=== PATIENT | male | born 1970 | race Caucasian/White ===

== ENCOUNTER → 2019-03-04 09:08 | Outpatient (CLI) | payer OTHER, MEDICAID, SELFPAY ==
[2019-03-04 10:34] LABS: Alanine Aminotransferase 41 IU/L (21-72); Albumin 4.4 g/dL (3.5-5.0); Albumin Globulin Ratio 1.4 (1.0-2.8); Alkaline Phosphatase 60 U/L (38-126); Aspartate Aminotransferase 32 IU/L (17-59); Bilirubin Total 0.8 mg/dL (0.2-1.3); Blood Urea Nitrogen 14 mg/dL (9-20); Calcium 9.5 mg/dL (8.4-10.2); Carbon Dioxide 31 mmol/L (22-32); Chloride 102 mmol/L (98-107); Cholesterol 235 mg/dL (140-199); Estimated Glomerular Filt Rate > 60.0 mL/min (>60); Globulin 3.1 g/dL (1.7-4.1); Glucose 92 mg/dL (70-100); HDL Cholesterol 32 mg/dL (40-60); HEMOLYSIS < 15 (0-50); LDL Cholesterol Calculated 164 mg/dL (<100); Potassium 4.9 mmol/L (3.4-5.1); Sodium 139 mmol/L (137-145); Total Protein 7.5 g/dL (6.3-8.2); Triglycerides 193 mg/dL (35-150)
[2019-03-04 10:36] LABS: Add Manual Diff / Slide Review NO; Basophils Absolute Auto 0 /uL (0-100); Basophils Percent Auto 0.6 % (0-2); Eosinophils Absolute Auto 100 /uL (0-450); Eosinophils Percent Auto 1.8 % (2-4); Hematocrit 45.5 % (41-53); Hemoglobin 15.8 g/dL (13.5-17.5); Lymphocytes Absolute Auto 2100 /uL (1100-4500); Lymphocytes Percent Auto 27.2 % (25-40); Mean Corpuscular HGB Conc 34.6 % (30-36); Mean Corpuscular Hemoglobin 31.3 PG (26-34); Mean Corpuscular Volume 90.3 fL (80-100); Monocytes Absolute Auto 600 /uL (0-900); Monocytes Percent Auto 8.1 % (3-14); Neutrophils Absolute Auto 4800 /uL (1500-7000); Neutrophils Percent Auto 62.3 % (50-75); Platelet Count 170 X10^3/uL (150-400); Red Blood Cell Count 5.04 X10^6/uL (4.5-5.9); Red Cell Distribution Width 14.2 % (11.6-14.8); White Blood Cell Count 7.8 X10^3/uL (4.5-11.0)
[2019-03-04 11:02] LABS: Prostate Specific Antigen Scrn 1.11 ng/mL (0.1-4.0)
[2019-03-04 11:28] LABS: Appearance Urine UA CLEAR; Bilirubin Urine UA NEGATIVE (NEGATIVE); Color Urine UA YELLOW; Glucose Urine UA NEGATIVE (Negative); Ketones Urine UA NEGATIVE (NEGATIVE); Leukocyte Esterase Urine UA NEGATIVE (NEGATIVE); Nitrite Urine UA NEGATIVE (Negative); Occult Blood Urine UA NEGATIVE (Negative); Protein Urine UA NEGATIVE (Negative); Urobilinogen Urine UA 0.2 E.U./dL (0.2); pH Urine UA 6.5 (4.5-8.0)
== END ==
PROVIDERS: PCP Family Medicine; Visit Provider Family Medicine
DX: J45.909 Unspecified asthma, uncomplicated (principal); R59.9 Enlarged lymph nodes, unspecified; F17.200 Nicotine dependence, unspecified, uncomplicated; Z13.220 Encounter for screening for lipoid disorders; Z13.29 Encounter for screening for other suspected endocrine disorder; Z12.5 Encounter for screening for malignant neoplasm of prostate
CPT/HCPCS: 36415; 80053; 80061; 81003; 84443; 85025; G0103

== ENCOUNTER → 2019-03-15 09:50 | Outpatient (CLI) | payer OTHER, MEDICAID, SELFPAY ==
--- NOTE | 2019-03-15 09:53 | DI.MRI.S_ITS ---
PROCEDURE: MR HIP LT WO/W CON INDICATIONS: Left hip dysplasia TECHNIQUE: Noncontrast coronal T1 spin echo and STIR through the bony pelvis. Coronal and axial T2 fast spin echo with fat saturation, axial T1 spin echo with fat saturation, sagittal T1 spin echo, and oblique axial T2 fast spin echo with fat saturation through the hip. Post-contrast axial, coronal, and sagittal spin echo with fat saturation through the hip. COMPARISON: None. FINDINGS: Image quality: Excellent. Bones and joints: No suspicious osseous enhancement. Osteoarthritic changes are noted in bilateral hip joints with joint space narrowing and subchondral sclerosis, slightly worse on the left side. No intraosseous lesions or fractures. No avascular necrosis of the femoral heads. The visualized lower lumbar spine appears normally aligned. Tendons and ligaments: There is distal gluteus medius and minimus tendinosis at their insertion on greater trochanter. Moderate grade intrasubstance partial-thickness tear is also likely present. No full-thickness muscle or tendon rupture. No muscle atrophy. The nearby proximal iliotibial band also appears intact. The iliopsoas tendon appears intact, without adjacent bursal fluid collections or evidence for impingement syndrome. The origin of the hamstring tendon is intact at the ischial tuberosity, as well as the associated sacrotuberous ligament. The straight and reflected heads of the rectus femoris muscle origin appear intact, as well as the conjoint tendon. The ligamentum teres appears intact where visualized. Labrum and cartilage: The absence of intra-articular contrast, there is suggestion of superior anterior left hip labral tear. The alpha angle of the femur is within normal limits at less than 55 degrees. Soft tissues: No suspicious soft tissue enhancement. Visualized muscles demonstrate normal bulk and internal signal. Quadratus femoris muscle demonstrates no internal edema to suggest ischiofemoral impingement. The proximal sciatic neurovascular bundle appears normal adjacent to the hamstring tendons. No free pelvic fluid. Bladder wall thickness is normal. Genitourinary structures and bowel loops appear normal where visualized. IMPRESSION: 1. Left worse than right bilateral hip joint osteoarthritis. No fracture or dislocation. No marrow edema. No evidence of avascular necrosis. 2. Tendinosis and low-grade partial-thickness tear involving distal left gluteal medius and minimus at their insertion on greater trochanter. 3. Finding is concerning for a focal left superior anterior hip labral tear. 4. No area of abnormal contrast enhancement. Dictated by: Hunter Cortez M.D. on 03/15/2019 at 13:50 Approved by: Hunter Cortez M.D. on 03/15/2019 at 14:02
== END ==
PROVIDERS: PCP Family Medicine; Visit Provider Family Medicine
DX: Q65.89 Other specified congenital deformities of hip (principal); M16.0 Bilateral primary osteoarthritis of hip
CPT/HCPCS: 73723

== ENCOUNTER → 2019-10-21 07:44 | Outpatient (CLI) | payer OTHER, MEDICAID, SELFPAY ==
[2019-10-21 08:55] LABS: Alanine Aminotransferase 30 IU/L (<50); Albumin 4.4 g/dL (3.5-5.0); Albumin Globulin Ratio 1.4 (1.0-2.8); Alkaline Phosphatase 52 U/L (38-126); Aspartate Aminotransferase 29 IU/L (17-59); Bilirubin Total 0.6 mg/dL (0.2-1.3); Blood Urea Nitrogen 18 mg/dL (9-20); Calcium 9.7 mg/dL (8.4-10.2); Carbon Dioxide 33 mmol/L (22-32); Chloride 102 mmol/L (98-107); Cholesterol 291 mg/dL (140-199); Estimated Glomerular Filt Rate > 60.0 mL/min (>60); Globulin 3.2 g/dL (1.7-4.1); Glucose 101 mg/dL (70-100); HDL Cholesterol 38 mg/dL (40-60); HEMOLYSIS < 15 (0-50); LDL Cholesterol Calculated 209 mg/dL (<100); Sodium 140 mmol/L (137-145); Total Protein 7.6 g/dL (6.3-8.2); Triglycerides 220 mg/dL (35-150)
== END ==
PROVIDERS: PCP Family Medicine; Visit Provider Family Medicine
DX: Z13.29 Encounter for screening for other suspected endocrine disorder (principal); Z51.81 Encounter for therapeutic drug level monitoring; E78.5 Hyperlipidemia, unspecified
CPT/HCPCS: 36415; 80053; 80061

== ENCOUNTER → 2019-11-22 17:59 | Outpatient (CLI) | payer OTHER, MEDICAID, SELFPAY | PROVIDERS: PCP Family Medicine; Visit Provider Nurse Practitioner | DX: L72.9 Follicular cyst of the skin and subcutaneous tissue, unspecified (principal) | CPT/HCPCS: 87070; 87075; 87077; 87147; 87185; 87186; 87205 ==

== ENCOUNTER → 2020-08-17 12:51 | Outpatient (CLI) | payer BC, SELFPAY ==
--- NOTE | 2020-08-17 | DI.MRI.S_ITS ---
PROCEDURE: MR LUMBAR SPINE WO CON INDICATIONS: Low back pain TECHNIQUE: Noncontrast sagittal T1 spin echo and T2 fast echo, sagittal STIR, axial T1 and T2 fast spin echo through the lumbar spine. In cases with scoliosis, additional coronal T2 fast spin echo may be performed. COMPARISON: [facility], CR, XR LUMBAR SPINE 2 OR 3 VIEWS, 08/04/2020, 16:27. FINDINGS: Image quality: Excellent. Alignment and Curvature: 5 lumbar type vertebral bodies are present by plain film. There is mild, grade 1 retrolisthesis of L2 on L3. There is mild grade 1 anterolisthesis of L3 on L4. Bone Marrow: Marrow is of normal overall signal. No acute vertebral body compression fractures. There is moderate reactive signal within the endplates adjacent to the L4-L5 intervertebral disc. Mild reactive signal within the endplates adjacent to the L2-L3, L3-L4, and L5-S1 intervertebral discs. Spinal Cord: Conus medullaris terminates at the L1-L2 disc space level. Visualized cord demonstrates normal signal and size. Paraspinous Soft Tissues: No paravertebral masses. L1-L2: Mild disc desiccation and diffuse disc bulge. Mild facet and ligamentum flavum hypertrophy. Mild epidural lipomatosis. Mild canal stenosis. Mild bilateral foraminal stenosis. L2-L3: Moderate disc height loss and desiccation. Mild diffuse disc bulge. Mild facet and ligamentum flavum hypertrophy. Mild epidural lipomatosis. Mild canal stenosis. Mild bilateral foraminal stenosis. L3-L4: Moderate disc height loss and desiccation. Mild diffuse disc bulge. Moderate facet hypertrophy. Mild ligamentum flavum hypertrophy. Mild epidural lipomatosis. Mild canal stenosis. Moderate left foraminal stenosis. Mild right foraminal stenosis. L4-L5: Moderate disc height loss and desiccation. Mild diffuse disc bulge. Mild bilateral facet hypertrophy. Mild canal stenosis. Moderate left and mild right foraminal stenosis. L5-S1: Mild disc height loss and desiccation. Mild diffuse disc bulge. Mild bilateral facet hypertrophy. Mild canal stenosis. Moderate bilateral foraminal stenosis. IMPRESSION: 1. Multilevel degenerative disc and facet disease, as well as ligamentum flavum hypertrophy and epidural lipomatosis. 2. Mild multilevel canal stenosis. 3. Multilevel foraminal stenosis, worst at L3-L4, L4-L5, and L5-S1, where there are moderate foraminal stenosis as described above. Dictated by: Joni Adkins M.D. on 08/17/2020 at 13:45 Approved by: Joni Adkins M.D. on 08/17/2020 at 13:49
== END ==
PROVIDERS: PCP Family Medicine; Referring Provider Orthopaedic Surgery Orthopaedic Surgery of the Spine; Visit Provider Orthopaedic Surgery Orthopaedic Surgery of the Spine
DX: M54.5 Low back pain (principal); M51.36 Other intervertebral disc degeneration, lumbar region; M51.37 Other intervertebral disc degeneration, lumbosacral region; M48.061 Spinal stenosis, lumbar region without neurogenic claudication; M48.07 Spinal stenosis, lumbosacral region; E88.2 Lipomatosis, not elsewhere classified
CPT/HCPCS: 72148

== ENCOUNTER → 2020-09-25 08:22 | Outpatient (CLI) | payer BC, SELFPAY ==
[2020-09-26 01:37] LABS: COVID19 Sendout Not Detected (Not Detect)
== END ==
PROVIDERS: PCP Family Medicine; Visit Provider Physician Assistant
DX: Z11.59 Encounter for screening for other viral diseases (principal)
CPT/HCPCS: 87635

== ENCOUNTER 2020-09-28 05:55 | Inpatient (IN) | payer BC, SELFPAY ==
[2020-09-23 09:41] VITALS: BMI 40.7
[2020-09-28] VITALS (18 sets, daily range): BP systolic 120–170; BP diastolic 63–102; PULSE 61–91; RESP 7–19; TEMP 36.1–37.1; O2SAT 91–100; BMI 40.1
--- NOTE | 2020-09-28 | DI.RAD.S_ITS ---
PROCEDURE: XR LUMBAR SPINE 2-3V INDICATIONS: L3-4 TLIF TECHNIQUE: 2 views of the lumbar spine were acquired. COMPARISON: None. FINDINGS: Bones: 5 [id number] vertebrae are present. There is normal bony alignment. No vertebral body compression fractures. No suspicious bony lesions. Prior posterior fusion procedure has been performed with transverse pedicle screws crossing from L3 through L5, and bilateral vertical fixation rods in expected position. Interbody disc cage prosthesis devices are present at L3-4 and L4-5. Soft tissues: Overlying bowel gas pattern is normal. No suspicious soft tissue calcifications. IMPRESSION: Normal alignment established after posterior fusion and interbody cage disc prosthesis devices placement crossing from L3 through L5. Dictated by: Cirilo Elizabeth M.D. on 09/28/2020 at 12:56 Approved by: Cirilo Elizabeth M.D. on 09/28/2020 at 13:05
[2020-09-28] MEDS: LACTATED RINGERS 1,000 ML 42 ML IV ×2 (07:00→09:15)
[2020-09-28] MEDS: CLINDAMYCIN 900 MG/50 ML PIGGYBACK 50 MG IV ×3 (07:55→23:36)
--- NOTE | 2020-09-28 08:28 | SUR.OPER ---
Prone on spine table, head in foam head support, padded chest and pelvic supports, gel pad at knees, lower legs supported by pillows; nipples, genitalia and toes free of pressure, arms secured on foam padded arm boards at <90 degrees abduction. Tape over blanket at thigh secured to table.
[2020-09-28] MEDS: BUPIVACAINE 0.25% W/ EPI 30 ML VIAL INJ (08:35)
[2020-09-28] MEDS: BUPIVACAINE LIPOSOME 266 MG/20 ML VIAL INJ (08:35)
--- NOTE | 2020-09-28 11:55 | PC.NURSE ---
Day shift: Pt is not on AC unit at this time (1200).
--- NOTE | 2020-09-28 12:06 | PM.OP.1 ---
Operative Date/Time/Diagnoses Date of procedure: 09/28/20 Time of procedure: 08:06 Pre-op diagnosis: 1. L3-4 spondylolisthesis 2. L3-4, L4-5 spinal stenosis with radiculopathy 3. L3-4, L4-5 spondylosis with radiculopathy Post-op diagnosis: same Procedure & Clinicians Procedure: 1. L3-4, L4-5 Postero-lateral and posterior interbody fusion 2. L3-4, L4-5 interbody cage placement. 3. L3-4, L4-5 decompressive laminectomy with bilateral facetecomies 4. L3-4, L4-5 Posterior segmental instrumentation 5. Sherborn of bone marrow from iliac crest 6. Utilization of microsurgical technique and operating microscope Same procedure as scheduled: Yes Indications: Patient has been having chronic back pain and worsening lumbar radiculopathy. Patient failed multiple conservative management with worsening pain weakness and numbness in her lower extremity. Patient has been having difficulty performing activity of daily living. After discussing risks benefits of treatment options, patient elected proceed with surgery. Surgeon: Felisa Pérez Dispensing Operator: July Merritt Click Yes if Unassisted: No Anesthesia Type: General Operative Notes Closure Type: primary Specimen(s): none sent Prosthetic devices, grafts, tissues, transplants, or devices: Globus revolve screws, Rise cages Applied: catheter Estimated Blood Loss (mL): 100 Blood products transfused: none Procedure in detail: Patient was seen in the preoperative area. Risks and benefits of the surgery was discussed with the patient. Informed consent was obtained from the patient and placed in the chart. Surgical site was marked. Patient was taken to the operative room. General anesthesia was administered. Prophylactic antibiotic was given to the patient less than 30 min before the incision was made. Patient was placed into a prone position on the Junior table. Patient's back was then prepped and draped in the sterile fashion. Time-out was performed at this time. Using AP and lateral C-arm imaging the interval between L3-4, L4-5 was identified and marked on patient's back. A 2 inch incision 2 in from midline was made on the left side first. The fascia was incised in line with skin incision. Globus MARS retractors was placed inside the incision and docked onto the L3 and L4 lamina. Using microsurgical technique and operating microscope, a L3 and L4 laminectomy and L3-4, L4-5 facetectomy was performed using a Kerrison rongeur. Patient was found have severe central and neural foramen stenosis at L3-4 L4-5 level. Total laminectomy and facetectomy was required to fully decompress patient's neurologic structures. The decompression rendered the L3-4 L4-5 further unstable in addition to the patient's artery present spondylolisthesis and requiring a fusion at the same time. The disc space at L3-4, L4-5 was identified. And a total diskectomy was performed at L3-4, L4-5 level. The endplates were decorticated using a rasp and shaver. The total diskectomy and decortication was performed at L3-4, L4-5 level in order to to accomplish a L3-4, L4-5 fusion. The local bone from the laminectomy and facetectomy was saved for local bone grafting. After the total diskectomy and decortication was completed, Trifecta bone graft material was combined with local bone that was harvested earlier. At this time, a separate skin is incision was made over the iliac crest. A Jamshidi needle was inserted into the iliac crest through a separate skin incision. 5 cc of bone marrow aspiration was obtained through the separate skin incision using a Jamshidi needle from the iliac crest. The bone marrow aspiration was combined with local bone and the Trifecta bone grafting material. The bone grafting material was placed into the L3-4, L4-5 interbody space along with two cages, one expandable cage at each level. The cages were expanded to their maximum height using the torque limiting screwdriver. At this time a mirror image incision was made on the right side. The fascia was incised in line with the skin incision. Globus MARS retractor was inserted and docked onto the L3-4, L4-5 posterolateral gutter. Using the power drill, posterior-lateral decortication was performed at L3-4, L4-5 level until bleeding cortical bone was identified. The remaining bone grafting material was placed into the L3-4, L4-5 posterior lateral gutter he order to accomplish posterolateral fusion at the L3-4, L4-5 levels. Using the double C-arm technique, pedicle screws were placed into the L3, L4, L5 pedicles bilaterally. This was done by placing the Jamshidi needle into the pedicles, then placing the guidewires over the Jamshidi needle, and finally placing the cannulated screws over the guidewires bilaterally. After the pedicle screws were placed, 2 titanium rods was locked into the heads of the pedicle screws using locking caps and torque limiting screwdriver. Total 6 pedicles screws were placed. After all the hardware was placed, and confirmed with AP and lateral C-arm imaging, the wound was then irrigated with sterile normal saline and packed with Ray-Amanda gauze for 3 min to accomplish hemostasis. After the gauze was removed the deep fascia was closed with #1 Vicryl suture. The subcutaneous layer was closed with 2-0 Vicryl. The skin was closed with skin angela. Patient tolerated the procedure well. There were no complications. Complications: none Post-operative Condition: stable Disposition: PACU Plan for aftercare: Discharge home
[2020-09-28] MEDS: fentaNYL 100 MCG/2 ML INJ IV ×2 (12:26→12:48)
--- NOTE | 2020-09-28 12:28 | PM.PREOP ---
Pre-operative Note COVID-19 COVID-19 status: Negative Result date/Date tested (Pos, Neg/Pending): 09/26/20 Interval Note History & Physical reviewed/Exam performed by Physician: Yes Changes to H&P: No
[2020-09-28] MEDS: ALBUTEROL 2.5 MG/3 ML NEB (ADULT) INH (12:32)
[2020-09-28] MEDS: HYDROMORPHONE 2 MG INJ IV ×4 (12:52→13:07)
[2020-09-28] MEDS: MIDAZOLAM 2 MG/2 ML VIAL IV (13:00)
--- NOTE | 2020-09-28 14:09 | SUR.PHASEI ---
Pt trransferred to room at 1400 in stable condition wanting to get out of bed and stand, taking po fluids without problems before transferring. Handoff to Neftali Bhatia in room and with assistance pt standing up at bedside then sitting in chair.
--- NOTE | 2020-09-28 14:09 | PC.NURSE ---
Day shift: Pt on unit at approx 1400 from PACU. Pt wanted to stand up. Pt moved well and did stand up for approx 4 minutes. He was steady on his feet. He is now sitting in chair in room. Chair alarm is on. Oriented to room and call light. Dressing on back is CDI. He did c/o feeling like he needed to urinate. Adjusted the Hannah line and no c/o discomfort from Hannah at this time. VS WNL. RA 98%. Lung sounds clear. HR regular. CMS intact w/ PPP. Hypoactive BT's. Call light in reach.
[2020-09-28] MEDS: ACETAMINOPHEN 325 MG TABLET 650 MG PO (14:34)
[2020-09-28] MEDS: hydrOXYzine pamoate 25 MG CAPSULE PO ×2 (14:34→21:34)
[2020-09-28] MEDS: OXYCODONE IR 10 MG TABLET PO ×3 (14:34→23:40)
[2020-09-28] MEDS: SODIUM CHLORIDE 0.9% 1,000 ML 100 ML IV (14:46)
--- NOTE | 2020-09-28 14:50 | PC.NURSE ---
Day shift: Pt instructed on I.S. use. He said I do not want to do that right now.
[2020-09-28] MEDS: HYDROMORPHONE 0.5 MG INJ IV ×2 (14:59→19:14)
--- NOTE | 2020-09-28 17:22 | PT.IIE ---
Current Diagnoses Foot drop, left foot (09/28/20) Spondylolisthesis, lumbar region (09/28/20) Spinal stenosis, lumbar region with neurogenic claudication (09/28/20) Surgery Performed Operation Date: 09/28/20 07:45 Actual Procedures p L3-4, L4-5 TLIF with posterior instrumentation - Felisa Pérez MD Surgical History (Last Updated 09/23/20 @ 10:05 by Alethea Olivares RN) No history of previous surgery (Acute) Medical History (Last Updated 09/23/20 @ 10:12 by Alethea Olivares RN) Anxiety (Acute) Arthritis (Acute) Asthma (Chronic) Bipolar disorder (Chronic ~1995) Chronic back pain (Chronic ~2012) Degenerative disc disease, lumbar (Chronic) 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 (Acute) Depression (Chronic ~1995) Hip pain (Chronic) Nerve pain (Acute) Seasonal allergies (Chronic) Physical Therapy Inpatient Evaluation/Re-Eval M1 PT/OT-IP Prior Functional Status Start: 09/28/20 15:04 Freq: NEEDED Status: Active Protocol: Document 09/28/20 16:20 DE (Rec: 09/28/20 17:13 DE [id number]) Medical Review Prior Functional Status Medical History Reviewed Yes Diet/Fluid Consistency Regular Communication WNL. No deficits noted. Able to make needs known. Mobility and Gait IND with all mobility and amb without AD at baseline. Activities of Daily Living and IADL's IND with all ADLs and IADLs at baseline. Prior Functional Level (Other details) Hx of torn labrum in 2015. Social History Household Members spouse,children Living Arrangements Apartment/Condo Number of Floors (Floors) One Floor Number of Stairs To Enter/Railing? 2 PF NAOMI. No steps inside. Home Environment Standard Height Toilet,Tub/ Shower Home Equipment Front Wheel Walker,Hand Held Shower Employment Status Unemployed Additional Social History Comment Pt lives with spouse who is able to help if needed. Pt also lives with 2 adult children and 3 big dogs. One of his children is taking a week off from work to assist. M2 PT-IP Current Condition Start: 09/28/20 15:04 Freq: NEEDED Status: Active Protocol: Document 09/28/20 16:20 DE (Rec: 09/28/20 17:13 DE [id number]) Physical Therapy Current Condition Current Condition Evaluation Date 09/28/20 Treatment Diagnosis L3-5 fusion; Difficulty with amb Onset Date 09/28/20 Precautions Lumbar Precautions Log Roll,No Twisting,Limit Bending,Lifting Restriction of 10 lbs,Gait Belt above Incisional Area M3 PT-IP Subjective Start: 09/28/20 15:04 Freq: NEEDED Status: Active Protocol: Document 09/28/20 16:20 DE (Rec: 09/28/20 17:13 DE [id number]) Subjective Physical Therapy Visit Type Type Initial Evaluation Visit Start Time 15:50 Visit Stop Time 16:12 Total Visit Minutes 22 Notes SPT Saroj arreguin pt under direct supervision of PT Sarah throughout the entire session. Pt's was present at bedside through the entire session. Number of CRUSHER SCREEN REPAIRER Visits 0 Physical Therapy Visit Comments Patient Comments Pt is agreeable to do PT. Patient Goals To return home. Therapy Pain Assessment Pain When Pain Assessed During Weight Bearing Pain Present Pain Present Pain Reported Location Back Intensity 5 Scale Used Numeric (0 - 10) Description Aching Pain Behaviors Calling Out,Facial Grimacing, Moaning,Wincing Pain Management Techniques Timing of Activity with Medications M4 PT-IP Mobility and Gait Start: 09/28/20 15:04 Freq: NEEDED Status: Active Protocol: Document 09/28/20 16:20 DE (Rec: 09/28/20 17:13 DE [id number]) PT-Bed Mobility Assessment Rolling Type of Rolling Roll to Left Level of Assist Contact Guard Assistance Supine to Sit Supine to Sit Contact Guard Assistance Sit to Supine Sit to Supine Contact Guard Assistance Scooting Scooting to Edge of Bed Contact Guard Assistance PT-Transfer Assessment Sit to and From Stand Sit to and from Stand Minimal Assistance,1 Person Assistance,Use of Upper Extremities Equipment Transfer Assistive Device Gait Belt,Front Wheeled Walker Orthotic/Prosthetic Devices or Brace: No Transfers Transfer Destination Bed Transfer Technique Stand Step Pivot Transfer Ability Level of Assist Contact Guard Assistance Comments Mobility Comments Pt was sleeping on his L side in bed as PT and SPT arrived. Pt demonstrated drousiness throughout the session. Pt performed logrolling to his L with CGA and use of BUE pushing off the bed. Pt then completed sit to stand with FWW and min 1PA for stabilizing the FWW. Pt had difficulty WB through his LEs, especially the LLE, and had increased WB through his BUE on the FWW in standing. Pt amb ~15 ft total around the foot of the bed and back. Pt needed to take 3-4 standing breaks d /t increased pain and fatigue. Pt demonstrated antalgic, step-through gait pattern with decreased stride lengh flexed trunk, and decreased gait speed. Pt then sat down on the L side EOB and performed sit to sidelying using the logroll technique with CGA and use of BUE. Pillows were placed behind the back and between the knees. Call light placed within reach. Gait Assessment Gait Gait Assistance Required: Contact Guard Assist Distance (Feet) 15 Able to Maintain Weight Bearing Status Yes During Gait Assistive Devices Assistive Device Gait Belt,Front Wheeled Walker Orthotic/Prosthetic Devices or Brace: No Gait Deviations General Gait Pattern Antalgic,Decreased Stride Length,Decreased Feet Clearance,Flexed Trunk Factors Limiting Gait Function Factors Limiting Gait Function Decreased Activity Tolerance, Decreased Strength,Limited Range of Motion,Pain,Poor Balance,Poor Safety Awareness Comments Gait Comments See mobility comments. Stair Climbing Assessment Comments Stair Climbing Comments Not assessed. PT-Balance Assessment Sitting Balance and Reactions Static Sitting Balance Ability Normal Dynamic Sitting Balance Ability Normal Standing Balance and Reactions Static Standing Balance Ability Good Dynamic Standing Balance Ability Good M5 PT-IP Objective Assessments Start: 09/28/20 15:04 Freq: NEEDED Status: Active Protocol: Document 09/28/20 16:20 DE (Rec: 09/28/20 17:13 DE [id number]) Orientation Orientation/Cognition Level of Alertness Lethargic Orientation Name,Age,Birthday,Month,Date, Year,Day of Week,Place, Situation Language Function Ability No Deficits Noted Safety Awareness Decreased Safety Awareness Memory Description No Deficits Noted Comments Pt frequently twisted his back in sidelying and walked away from FWW during transfers. Strength Lower Extremity Strength Assessment Bilaterally Impaired Comments Strength Comments LLE more impaired than RLE. Coordination Assessment Gross Coordination Gross Coordination WNL Sensation Assessment Sensation Gross Sensation WNL Light Touch Intact Comments Sensation Comments Pt notes that numbness and tingling in BLE is better after surgery. Muscle Tone Muscle Tone WNL Yes M6 PT-IP Treatment Start: 09/28/20 15:04 Freq: NEEDED Status: Active Protocol: Document 09/28/20 16:20 DE (Rec: 09/28/20 17:13 DE [id number]) Physical Therapy Treatment Education Education Provided Precautions,Post-Op Packet, Safety Other Treatments Other Treatment Performed Patient education was provided on spine precautions, role of PT, and safety. M7 PT-IP Assessment and Plan Start: 09/28/20 15:04 Freq: NEEDED Status: Active Protocol: Document 09/28/20 16:20 DE (Rec: 09/28/20 17:13 DE [id number]) PT Summary Assessment and Plan Potential Rehabilitation Potential Excellent Status of Condition at Evaluation Stable Summary Impairments Pain,ROM,Strength,Balance,Bed Mobility,Transfers,Gait, Activity Tolerance Assessment Summary Abel is a 50 yo s/p L3-5 posterolateral and posterior interbody fusion post-op day 0 . At baseline, pt was IND with all mobility, amb, and ADLs without AD. On evaluation, pt required min 1PA for stabilizing FWW during transfers. CGA and FWW with increased use of BUE were required for bed mobility and amb. Pt is not safe for d/c home at this point. Pt will need to improve activity tolerance and perform 2 PF steps with FWW in order to d/c home safely. PT anticipates pt will d/c home with FWW and family assistance. Goals Bed Mobility Goal Independent Transfer Goal Independent Gait Goal Independent Gait Distance 200 Other Goals Pt will perform stair climbing up and down 1 PF step x2 with FWW. Days to Meet Goals 5 Frequency of Treatment Frequency Of Treatment Twice a Day Treatment Plan Physical Therapy Treatment Plan Bed Mobility Training,Transfer Training,Gait Training, Therapeutic Exercise,Balance Retraining,Post Op Education, Discharge Planning Other Recommendations and Next Treatment Stair climbing. Focus Recommendations To Nursing Amount of Assist Needed 1 Person Assist Discharge Recommendations PT Discharge Recommendations Home with Assistance Transportation Needs at Discharge Private Vehicle Treatment was provided by Saroj Colón, LENORE and supervised by Sarah Nuñez, PT. I personally reviewed this note and agree with its contents.
[2020-09-28] MEDS: DOCUSATE 100 MG CAPSULE PO (21:34)
[2020-09-28] MEDS: SENNOSIDES 8.6 MG TABLET 17.2 MG PO (21:34)
--- NOTE | 2020-09-28 22:31 | PC.NURSE ---
EVENING SHIFT Report received, care assumed 1530. A&Ox3. VSS. C/o pain 5-8 throughout shift, decreased with meds. Pt. does report that the quality of pain is different--better--than pre-op. Declines ice pack. OOB, standing, walking, to chair; standby assist, FWW.
[2020-09-29 05:10] VITALS: BP 149/78; PULSE 67; RESP 16; TEMP 37.1; O2SAT 96
[2020-09-29 05:17] LABS: Hematocrit 40.1 % (41-53); Hemoglobin 14.1 g/dL (13.5-17.5)
--- NOTE | 2020-09-29 06:24 | PC.NURSE ---
concrete paver note: Patient with very little sleep throughout the shift. Patient complaining of pain 7/10 at the start of this RNs shift. Patient medicated with PRN Percolone. Upon reassessment, patient states he doesn't want to take any more pills, I want my to bring my CBD oil. Patient states his pain is better controlled with cannabis rather than pain pills. This RN offered other forms of pain relief such as ice pack, repositioning, fan. Patient declined it all. IV fluids discontinued per physician order, patient eating/drinking well with no N/V reported. Great UOP via nathan cath. VSS throughout shift. Patient eager to be discharged this AM. Patient ambulating with FWW with SBA only. Dressing on back remains D/I with small amount of shadowing noted on lower right side of dressing. Patient currently sitting up in receliner chair, resting, no distress noted. Will continue to monitor.
[2020-09-29] MEDS: OXYCODONE IR 10 MG TABLET PO ×3 (06:42→12:20)
--- NOTE | 2020-09-29 07:42 | P.PN_ITS ---
Subjective Subjective Date Patient Seen: 09/29/20 Time Patient Seen: 07:42 Interval history: Patient's pain is moderate. Denies fever chills. No nausea vomiting. Patient is able to move around the room yesterday evening using a walker. He does have assistance at home. Exam Vital Signs (past 8 hours): - 09/29/20 05:10 Temperature 98.8 F Pulse Rate 67 Respiratory Rate 16 Blood Pressure 149/78 H Pulse Oximetry 96 Oxygen Delivery Method Room Air Oxygen Flow Rate 4 Narrative Exam Narrative: 50-year-old male resting comfortably in bed in no apparent distress. Lumbar dressing is clean, dry and intact. Motor function is intact distal bilateral lower extremities. Both legs are warm and dry. Sensation grossly intact to light touch bilateral lower extremities. Objective Labs Result Diagrams: 09/29/20 04:54 Labs: Laboratory Results - last 24 hr 09/29/20 04:54 Hgb 14.1 Hct 40.1 L Assessment & Plan Post-op Postoperative Procedures: Procedures Operation Date: 09/28/20 07:45 Actual Procedures Side Surgeon p L3-4, L4-5 TLIF with posterior instrumentation Felisa Pérez MD Postop day 1. Mobilize with physical therapy. Limit bending, lifting, t wisting. Likely discharge this evening.
[2020-09-29 08:00] VITALS: BP 139/76; PULSE 62; RESP 20; TEMP 36.9; O2SAT 97
--- NOTE | 2020-09-29 08:08 | PC.NURSE ---
Day shift: Pt resting in bed and laying on left side. Talking on phone and in no apparent distress. Was asked to rate pain and he said what pain. Call light in reach. Agrees to not get OOB w/o help from staff. Continues to refuse SCD use. Informed about DVT's and how the SCD's help prevent those.
--- NOTE | 2020-09-29 08:32 | OT.IP.EVAL ---
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 No deficits noted. Able to make needs known. Mobility and Gait IND with all mobility and amb without AD at baseline. Activities of Daily Living and IADL's IND with all ADLs and IADLs at baseline. Prior Functional Level (Other details) Hx of torn labrum in 2015. Social History Household Members spouse,children Living Arrangements Apartment/Condo Number of Floors (Floors) One Floor Number of Stairs To Enter/Railing? 2 PF NAOMI. No steps inside. Home Environment Standard Height Toilet,Tub/ Shower Home Equipment Front Wheel Walker,Hand Held Shower Employment Status Unemployed Additional Social History Comment Pt lives with spouse who is able to help if needed. Pt also lives with 2 adult children and 3 big dogs. One of his children is taking a week off from work to assist. M1 PT/OT-IP Prior Functional Status Start: 09/29/20 11:55 Freq: NEEDED Status: Active Protocol: Document 09/29/20 08:18 [facility] (Rec: 09/29/20 12:10 [facility] [id number]) Medical Review Prior Functional Status Medical History Reviewed Yes Diet/Fluid Consistency Regular Communication WNL. No deficits noted. Able to make needs known. Mobility and Gait IND with all mobility and amb without AD at baseline. Activities of Daily Living and IADL's IND with all ADLs and IADLs at baseline. Prior Functional Level (Other details) Hx of torn labrum in 2015. Social History Household Members spouse,children Living Arrangements Apartment/Condo Number of Floors (Floors) One Floor Number of Stairs To Enter/Railing? 2 PF NAOMI. No steps inside. Home Environment Standard Height Toilet,Tub/ Shower Home Equipment Hand Held Shower Employment Status Unemployed Additional Social History Comment Pt lives with spouse who is able to help if needed. Pt also lives with 2 adult children and 3 big dogs. One of his children is taking a week off from work to assist. M2 OT-IP Current Condition Start: 09/29/20 11:55 Freq: Status: Active Protocol: Document 09/29/20 08:18 [facility] (Rec: 09/29/20 12:10 [facility] [id number]) Occupational Therapy Current Condition Current Condition Evaluation Date 09/29/20 Treatment Diagnosis Spinal Stenosis, s/p L3-4, L4- 5 TLIF Diagnosis Onset Date 09/28/20 Post Operative Precautions Lumbar Precautions Log Roll,Limit Bending,Lifting Restriction of 10 lbs,Gait Belt above Incisional Area M3 OT- IP Subjective and Pain Start: 09/29/20 11:55 Freq: Status: Active Protocol: Document 09/29/20 08:18 [facility] (Rec: 09/29/20 12:10 [facility] [id number]) OT- Subjective Occupational Therapy Visit Type Type Initial Evaluation Visit Start Time 08:18 Visit Stop Time 08:32 Total Visit Minutes 14 Occupational Therapy Visit Comments Patient Comments Pt already up the the hallway walking on his own with the FWW when OT approached pt for OT eval. Patient/Caregiver Goals To go home. OT Pain Assessment Pain When Pain Assessed At Rest Pain Present Pain Present Denied Pain M4 OT- IP ADL's Start: 09/29/20 11:55 Freq: Status: Active Protocol: Document 09/29/20 08:18 [facility] (Rec: 09/29/20 12:10 [facility] [id number]) OT [id number] Comments OT Self-Feeding Comments NOt at meal time. OT ADL-Grooming Comments OT Grooming Comments Not performed. OT ADL-Oral Care Comments Oral Care Comments Educated pt best to spit into a cup versus hinge at his hips to spit in to the sink to best follow his back precautions. OT ADL-Dressing General Eval Lower Body Dressing Ability Moderate Assistance Areas Needing Assistance Socks Comments OT Dressing Comments Pt not wanting any adaptive equipment and states his family will assist him at home . OT ADL-Toileting General Evaluation Toileting Ability Independent Comments OT Toileting Comments Pt able to independently reach for all pericare needs. OT ADL-Bathing Comments OT Bathing Comments Recommended pt to have his to asisst for shower as will have to step into the tub and able to stimulate with OT. Pt may benefit from a shower chair, otherwise his will have to assist to wash his legs/feet. M5 OT- IP IADL's Start: 09/29/20 11:55 Freq: Status: Active Protocol: Document 09/29/20 08:18 [facility] (Rec: 09/29/20 12:10 [facility] [id number]) OT-Instrumental Activities of Daily Living Home Safety Awareness Awareness of Need for Assistance at Home Good Awareness Ability to Problem Solve Emergency Able to Problem Solve Situations Home Safety Comments Pt aware that pain medication may make him groggy and to have supervise or assist with finances and medications initially. Meal Preparation Meal Preparation Caregiver Provides Assist Composition Instructor Composition Instructor Caregiver Provides Assist M6 OT- IP Functional Cognition Start: 09/29/20 11:55 Freq: Status: Active Protocol: Document 09/29/20 08:18 [facility] (Rec: 09/29/20 12:10 [facility] [id number]) Cognitive Factors Limiting Selfcare Function Cognitive Ability Level of Alertness Alert Patient Orientation Name,Age,Birthday,Month,Date, Year,Day of Week,Place, Situation Attention Span Ability Capable of Focused Attention, Capable of Sustained Attention Ability to Follow Commands Able to Follow Multi-Step Commands Memory Description No Deficits Noted Safety Awareness No Deficits Noted Cognitive Comments Cognitive Assessment Comments NO deficits noted at this time . Pt able to states and follow his back precautions with good safety. M7 OT- IP Mobility and Balance Start: 09/29/20 11:55 Freq: Status: Active Protocol: Document 09/29/20 08:18 [facility] (Rec: 09/29/20 12:10 [facility] [id number]) OT- Bed Mobility Assessment Rolling Type of Rolling Roll to Right Level of Assistance Standby Assistance Supine to Sit Supine to Sit Assist Standby Assistance Sit to Supine Sit to Supine Assist Standby Assistance OT-Transfer Assessment Sit to and From Stand Sit to and from Stand Standby Assistance Transfers Transfer Ability Standby Assistance Technique Transfer Destination Bed,Chair,Toilet Transfer Technique Stand Step Pivot Devices Transfer Assistive Devices Gait Belt,Front Wheeled Walker Comments Mobility Comments SBA to distant SBA with FWW in the room for even surfaces. Pt states does not have a FWW and encourage pt to call his to see if he is able to get one prior to going home. OT- Balance Assessment Sitting Balance and Reactions Static Sitting Balance Ability Normal Dynamic Sitting Balance Ability Good Standing Balance and Reactions Static Standing Balance Ability Good M8 OT- IP Objective Assessments Start: 09/29/20 11:55 Freq: Status: Active Protocol: Document 09/29/20 08:18 [facility] (Rec: 09/29/20 12:10 [facility] [id number]) OT-Muscle Tone Assessment Muscle Tone WNL Yes M9 OT- IP Assessment and Plan Start: 09/29/20 11:55 Freq: Status: Active Protocol: Document 09/29/20 08:18 [facility] (Rec: 09/29/20 12:10 [facility] [id number]) OT Summary Assessment and Plan Potential Rehabilitation Potential Excellent Analytic Complexity at Evaluation Low Summary OT Impairments Functional Mobility,Dressing, Bathing,Shower Transfers Progress Towards Goals Progressing Toward Goals Assessment Summary Pt low complexity and doing well after L3-4, L4-5 TLIF and mainly just needing assist for dressing needs for LB dressing. Pt not wanting to use any adaptive equipment and states, If I can not do it, I will just get my family to assist. Pt looking to go home with his family to assist. Goals Dressing Goal Independent Bathing Goal Independent Shower Transfer Goal Independent Days to Meet Goals 2 Frequency of Treatment Frequency Of Treatment Once a Day Treatment Plan OT Treatment Plan ADL Training,Functional Mobility,Patient/Family Education,Discharge Planning Other Treatment Recommendations and Next shower if still here Treatment Focus Discharge Recommendations OT Discharge Recommendations Home with Assistance Home Equipment Needs FWW, shower chair? Transportation Needs at Discharge Private Vehicle
[2020-09-29 08:47] VITALS: PULSE 66; O2SAT 97
[2020-09-29] MEDS: DOCUSATE 100 MG CAPSULE PO (09:29)
[2020-09-29 12:00] VITALS: BP 132/70; PULSE 71; RESP 20; TEMP 36.9; O2SAT 98
--- NOTE | 2020-09-29 12:03 | PT.IPTN ---
Current Diagnoses Foot drop, left foot (09/28/20) Spondylolisthesis, lumbar region (09/28/20) Spinal stenosis, lumbar region with neurogenic claudication (09/28/20) Surgery Performed Operation Date: 09/28/20 07:45 Actual Procedures p L3-4, L4-5 TLIF with posterior instrumentation - Felisa Pérez MD Physical Therapy Treatment Note M2 PT-IP Current Condition Start: 09/28/20 15:04 Freq: NEEDED Status: Active Protocol: Document 09/28/20 16:20 [place] (Rec: 09/28/20 17:13 DE [id number]) Physical Therapy Current Condition Current Condition Evaluation Date 09/28/20 Treatment Diagnosis L3-5 fusion; Difficulty with amb Onset Date 09/28/20 Precautions Lumbar Precautions Log Roll,No Twisting,Limit Bending,Lifting Restriction of 10 lbs,Gait Belt above Incisional Area M3 PT-IP Subjective Start: 09/28/20 15:04 Freq: NEEDED Status: Active Protocol: Document 09/29/20 11:28 [place] (Rec: 09/29/20 11:49 DE [id number]) Subjective Physical Therapy Visit Type Type Treatment Note Visit Start Time 09:47 Visit Stop Time 09:59 Total Visit Minutes 12 Notes SPT Saroj led the session under direct supervision of PT Sarah throughout the entire session Number of ARCHIVIST ECONOMIC HISTORY Visits 0 Physical Therapy Visit Comments Patient Comments Pt is agreeable to do PT. Patient Goals To return home. M4 PT-IP Mobility and Gait Start: 09/28/20 15:04 Freq: NEEDED Status: Active Protocol: Document 09/29/20 11:28 DE (Rec: 09/29/20 11:49 DE [id number]) PT-Transfer Assessment Sit to and From Stand Sit to and from Stand Standby Assistance,Use of Upper Extremities Equipment Transfer Assistive Device Gait Belt,Front Wheeled Walker Orthotic/Prosthetic Devices or Brace: No Transfers Transfer Destination Chair Transfer Technique Stand Step Pivot Transfer Ability Level of Assist Standby Assistance Comments Mobility Comments Pt was sitting in chair as PT and SPT arrived. Pt completed sit to stand with SBA and FWW. Pt demonstrated good standing balance without holding onto FWW. Pt amb ~500 ft total out in the hallway, to the stairs, and back to the room. Pt mostly amb with FWW and SBA. On the way back to the room, pt amb ~150 ft CGA without AD. Pt was able to amb without any major gait deviations or LOB during the entire session. After amb ~150 ft without AD, pt wanted to use FWW again d/ t increased tightness in the back. Pt performed stair climbing up and down 1 PF step x2 CGA without AD. Pt was steady without any LOB. Pt went back to the chair. Call light placed within reach. Gait Assessment Gait Gait Assistance Required: Standby Assistance Distance (Feet) 500 Able to Maintain Weight Bearing Status Yes During Gait Assistive Devices Assistive Device None,Gait Belt,Front Wheeled Walker Orthotic/Prosthetic Devices or Brace: No Gait Deviations General Gait Pattern Within Normal Limits Factors Limiting Gait Function Factors Limiting Gait Function Decreased Activity Tolerance, Limited Range of Motion,Pain Comments Gait Comments See mobility comments. Stair Climbing Assessment Evaluation Level of Assist On Stairs Contact Guard Assistance Devices Stair Climbing Assistive Devices None Technique/Endurance Stair Climbing Direction Ascend and Descend Stair Climbing Technique Step to Step Number of Steps Climbed 1 Stair Climbing Set # Repetitions (reps) 2 Comments Stair Climbing Comments See mobility comments. PT-Balance Assessment Sitting Balance and Reactions Static Sitting Balance Ability Normal Dynamic Sitting Balance Ability Normal Standing Balance and Reactions Static Standing Balance Ability Normal Dynamic Standing Balance Ability Good Document 09/29/20 11:28 [place] (Rec: 09/29/20 11:49 [place] [id number]) Physical Therapy Treatment Education Education Provided Precautions,Post-Op Packet, Safety Other Treatments Other Treatment Performed Patient education was provided on spine precautions, role of PT, and safety. M7 PT-IP Assessment and Plan Start: 09/28/20 15:04 Freq: NEEDED Status: Active Protocol: Document 09/29/20 11:28 [place] (Rec: 09/29/20 11:49 [place] [id number]) PT Summary Assessment and Plan Summary Impairments Pain,ROM,Strength,Balance,Bed Mobility,Transfers,Gait, Activity Tolerance Assessment Summary Pt improved significantly from yesterday. Pt was SBA for all mobility and amb except when he was not using AD. Stair climbing and amb without AD required CGA but pt was very steady without any gait deviations or LOB. Pt amb ~500 ft total. Pt is safe for d/c home with FWW and family assistance. Discharge Recommendations PT Discharge Recommendations Home with Assistance Equipment Needed for Home Before FWW will be dispensed. Discharge Transportation Needs at Discharge Private Vehicle Treatment was provided by LENORE Elliott and supervised by Sarah Nuñez, PT. I personally reviewed this note and agree with its contents.
--- NOTE | 2020-09-29 12:15 | PT-IP ANOTE ---
Prior to d/c, FWW was dispensed from [employer].
--- NOTE | 2020-09-29 12:28 | PC.NURSE ---
All discharge teaching done regarding new medications, the use of oxycodone, ss/ of infection, activity, s.s of stroke, limit bending and lifting and follow up w/ doctor appt. Patient has coversite dressing. Patient given paper prescription for vistiril and oxycodone 10mg. Patient and left with all belongings. Patient and verbalized understanding of discharge teaching. Patient left facility via wheelchair to private vehicle with .
== END 2020-09-29 12:32 | disposition home or self-care (01) | DRG 454 ==
PROVIDERS: Admitting Provider Orthopaedic Surgery Orthopaedic Surgery of the Spine; PCP Family Medicine; Referring Provider Orthopaedic Surgery Orthopaedic Surgery of the Spine; Visit Provider Orthopaedic Surgery Orthopaedic Surgery of the Spine
DX: M43.16 Spondylolisthesis, lumbar region (principal); Z68.41 Body mass index [BMI] 40.0-44.9, adult; M48.061 Spinal stenosis, lumbar region without neurogenic claudication; M21.372 Foot drop, left foot; E66.9 Obesity, unspecified; Z87.891 Personal history of nicotine dependence
CPT/HCPCS: 36415; 72100; 76000; 85014; 85018; 94762; 97116; 97161; 97165; 99406; C1776; C9290; J1100; J1170; J2250; J2405; J2704; J3010; J7613

== ENCOUNTER 2020-10-23 07:16 | Emergency (ER) | payer BC, SELFPAY ==
[2020-09-28 14:53] VITALS: BMI 40.1
[2020-10-23] VITALS (8 sets, daily range): BP systolic 144–174; BP diastolic 68–83; PULSE 64–78; RESP 13–30; TEMP 36.9; O2SAT 95–97; BMI 42.7
--- NOTE | 2020-10-23 07:27 | ED.CHESTPAIN ---
HPI - Chest Pain General Chief Complaint: Chest Pain Stated Complaint: chest pain Time Seen by Provider: 10/23/20 07:27 Source: patient and family () Mode of arrival: Ambulatory Limitations: no limitations History of Present Illness HPI narrative: This is a 50-year-old male who comes to the emergency department with complaint of chest pain. Patient states started last night after he was crawling on the floor he states he was on his elbows pulling himself along on his stomach trying to pull some falls out from underneath the couch for his dog. Pain started last night. Patient states that he did have a particular moment where he had a sudden onset of pain but sort of gradually worsened. He states very point discomfort, on the left side of his chest particularly with deep inhalation. He states that he has not had any fevers or chills, no cold cough or congestion. He does not feel particularly short of breath but it is hard for him to take a deep breath. Patient denies any sweats. No nausea, no vomiting, no other GI or urinary symptoms. No swelling in his extremities. He has not had any bruising or skin changes. He states it feels similar to when he broke a rib and his younger years on that side. Patient did have lower back surgery on September 27 which he states has been doing well. He did take a dose of hydroxyzine left over from his surgery which he did not find helpful. Patient denies any other medical issues, he does use tobacco and marijuana and states that he can use these without any chest pain. He denies any other surgeries. He has an allergy to cephalexin. Related Data Previous Rx's Medication Instructions Recorded acetaminophen 650 mg PO Q6HR PRN #60 tab 09/29/20 docusate sodium [DOK] 100 mg PO BID #30 cap 09/29/20 hydroxyzine pamoate 25 mg PO Q6-8H PRN #30 cap 09/29/20 oxycodone 10 mg PO Q4-6H PRN #50 tab 09/29/20 apixaban [Eliquis] 10 mg PO BID #70 tab 10/23/20 hydrocodone-acetaminophen [[place]] 1 tab PO Q6H PRN #14 tab 10/23/20 Allergies Allergy/AdvReac Type Severity Reaction Status Date / Time cephalexin Allergy Intermediate Hives Verified 11/22/19 17:07 Review of Systems Review of Systems ROS Unobtainable: All systems reviewed & are unremarkable except as noted in HPI and below Patient History Medical History Anxiety Arthritis Asthma Bipolar disorder (~1995) Chronic back pain (~2012) Degenerative disc disease, lumbar 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 Depression (~1995) Hip pain Nerve pain Seasonal allergies Surgical History No history of previous surgery Social History household members: spouse and children Smoking Status: Current every day smoker Tobacco: How many years used: 30 alcohol intake: never Smoking Status: Current every day smoker Substance Use Type: marijuana Exam Narrative Exam Narrative: GENERAL: Alert and oriented x three, obese, well-appearing male in mild distress HEENT: Head normocephalic, atraumatic, EOMI, pupils reactive, face symmetric, moist mucous membranes NECK: Supple, full range of motion CARDIOVASCULAR: Regular rate and rhythm without murmurs, rubs or gallops. Unable to reproduce chest pain with palpation. No ecchymosis, erythema or other skin changes noted. RESPIRATORY: Breath sounds equal bilaterally, no wheezes rales or rhonchi. No tachypnea, no accessory muscle use. ABDOMEN: Soft, nontender. Normoactive bowel sounds all 4 quadrants. No guarding or rebound, rigidity, no mass : No CVA tenderness EXTREMITIES: Normal range of motion, no clubbing or edema. Neurovascularly intact NEUROLOGICAL: Cranial nerves II through XII grossly intact. Moving all extremities SKIN: Warm, dry, no petechiae, no rashes or lesions. Initial Vital Signs Initial Vital Signs: Vital Signs Temperature 98.4 F 10/23/20 07:30 Pulse Rate 78 10/23/20 07:30 Respiratory Rate 18 10/23/20 07:30 Blood Pressure 174/83 H 10/23/20 07:30 Pulse Oximetry 96 10/23/20 07:30 Scores HEART Score Heart Score history: Slightly Suspicious Heart Score EKG: Non-Specific repolarization disturbance Heart Score Age: 45-64 years old Heart Score risk factors: No known risk factors Heart Score troponin: < or = to normal limit Heart Score Total: 2 PERC Score Age greater than or equal to 50 years: Yes Heart rate greater than or equal to 100 bpm: No Room Air O2 Sat less than 95%: No Unilateral leg swelling: No Recent trauma or surgery: Yes Hemoptysis: No Prior PE or DVT: No Hormone Use: No Total PERC Score: 2 Course Orders Ordered: Discontinued Medications Apixaban (Apixaban 5 Mg Tablet) 10 mg PO NOW ONE Stop: 10/23/20 09:28 Last Admin: 10/23/20 09:59 Dose: 10 mg Documented by: JUAN JOSE Heparin Sodium (Porcine) (Heparin 5,000 Unit/Ml Vial) 5,000 unit IV NOW ONE Stop: 10/23/20 08:56 Last Admin: 10/23/20 09:07 Dose: 5,000 unit Documented by: JUAN JOSE Sodium Chloride (Normal Saline 0.9%) 1,000 mls @ 150 mls/hr IV CONT FELICITA Last Infusion: 10/23/20 11:38 Dose: 0 mls/hr Documented by: JUAN JOSE Admin: 10/23/20 08:02 Dose: 150 mls/hr Documented by: JUAN JOSE Heparin Sodium/Dextrose (Heparin Drip) 25,000 unit in 500 mls @ 45.885 mls/hr IV CONT FELICITA; Protocol Last Titration: 10/23/20 09:42 Dose: 0 units/kg/hr, 0 mls/hr Documented by: JUAN JOSE Admin: 10/23/20 09:08 Dose: 18 units/kg/hr, 45.885 mls/hr Documented by: JUAN JOSE Ketorolac Tromethamine (Ketorolac 60 Mg/2 Ml Vial) 15 mg IV NOW ONE Stop: 10/23/20 07:49 Last Admin: 10/23/20 08:04 Dose: 15 mg Documented by: JUAN JOSE Morphine Sulfate (Morphine 2 Mg/Ml Inj) 2 mg IV NOW ONE Stop: 10/23/20 08:57 Reevaluation(s) Reevaluation #1: Patient feels better after pain medication but still feels like he cannot take a full breath. Labs were reviewed, D-dimer is elevated and plan for angiography for PE evaluation. Patient's troponin still pending. Time: 08:14 Reevaluation #2: Patient pain has resolved so morphine was canceled, we reviewed his pulmonary embolism and lab findings including his troponin was negative. We did discuss that he may be admitted after discussion with hospitalist but some of patient's in his similar situations are DC to home on oral anticoagulation if they meet criteria. Patient did express his understanding. Time: 09:12 Time: 09:36 Consultations Consultation #1: Spoke with Dr. Sanabria, he politely defers observation S patient has no evidence of right heart strain at this time. He is not hypoxic, tachycardia, tachypnea, have elevated troponin, nor does EKG does not show any acute changes and there are no signs of heart strain on his CT imaging. By Hestia criteria patient is appropriate for outpatient anticoagulant. Patient does have bilateral PE acute to subacute. Patient did have surgery approximately a month ago but is likely out of the window for bleeding that would cause complications secondary to being post-op. Time: 09:30 Vital Signs Vital signs: Vital Signs - 8 hr 10/23/20 07:30 10/23/20 07:32 10/23/20 08:01 Temperature 98.4 F Pulse Rate 78 73 74 Respiratory Rate 18 21 Blood Pressure 174/83 H Pulse Oximetry 96 97 95 10/23/20 08:29 10/23/20 08:30 Temperature Pulse Rate 64 71 Respiratory Rate 30 H 18 Blood Pressure 159/74 H 147/68 H Pulse Oximetry 97 97 MDM - Chest Pain Lab Data Attestation: I reviewed the patient's lab results. Result diagrams: 10/23/20 07:25 10/23/20 07:25 Labs: Lab Results 10/23/20 10/23/20 10/23/20 Range/Units 07:25 07:25 07:25 WBC 12.4 H (4.5-11.0) X10^3/uL RBC 4.78 (4.5-5.9) X10^6/uL Hgb 14.8 (13.5-17.5) g/dL Hct 42.7 (41-53) % MCV 89.2 (80-100) fL MCH 31.0 (26-34) PG MCHC 34.8 (30-36) % RDW 14.1 (11.6-14.8) % Plt Count 188 (150-400) X10^3/uL Neut % (Auto) 81.7 H (50-75) % Lymph % (Auto) 6.5 L (25-40) % Barnwell % (Auto) 9.3 (3-14) % Eos % (Auto) 0.5 L (2-4) % Baso % (Auto) 2.0 (0-2) % Neut # (Auto) 13711 H (6570-1937) /uL Lymph # (Auto) 800 L (1171-0632) /uL Barnwell # (Auto) 1200 H (0-900) /uL Eos # (Auto) 100 (0-450) /uL Baso # (Auto) 300 H (0-100) /uL PT 13.1 H (10.1-12.7) SECONDS INR 1.1 (0.9-1.3) APTT 29 (26.4-36.2) SECONDS D-Dimer 839 H (<230) ng/mL Sodium 136 L (137-145) mmol/L Potassium 4.0 (3.4-5.1) mmol/L Chloride 103 (98-107) mmol/L Carbon Dioxide 29 (22-32) mmol/L BUN 14 (9-20) mg/dL Creatinine 0.93 (0.66-1.25) mg/dL Estimated GFR > 60.0 (>60) mL/min BUN/Creatinine Ratio 15.1 (6-22) Glucose 131 H (70-100) mg/dL Calcium 10.1 (8.4-10.2) mg/dL Total Bilirubin 1.0 (0.2-1.3) mg/dL AST 28 (17-59) IU/L ALT 42 (<50) IU/L Alkaline Phosphatase 118 (38-126) U/L Total Creatine Kinase 55 (55-170) U/L CK-MB (CK-2) TNP CK-MB (CK-2) Rel Index TNP Troponin I < 0.012 (0.01-0.034) ng/mL Total Protein 8.2 (6.3-8.2) g/dL Albumin 4.6 (3.5-5.0) g/dL Globulin 3.6 (1.7-4.1) g/dL Albumin/Globulin Ratio 1.3 (1.0-2.8) Lipase 97 (23-300) U/L COVID-19 PCR (Negative) 10/23/20 Range/Units 09:11 WBC (4.5-11.0) X10^3/uL RBC (4.5-5.9) X10^6/uL Hgb (13.5-17.5) g/dL Hct (41-53) % MCV (80-100) fL MCH (26-34) PG MCHC (30-36) % RDW (11.6-14.8) % Plt Count (150-400) X10^3/uL Neut % (Auto) (50-75) % Lymph % (Auto) (25-40) % Barnwell % (Auto) (3-14) % Eos % (Auto) (2-4) % Baso % (Auto) (0-2) % Neut # (Auto) (1395-0188) /uL Lymph # (Auto) (7986-1410) /uL Barnwell # (Auto) (0-900) /uL Eos # (Auto) (0-450) /uL Baso # (Auto) (0-100) /uL PT (10.1-12.7) SECONDS INR (0.9-1.3) APTT (26.4-36.2) SECONDS D-Dimer (<230) ng/mL Sodium (137-145) mmol/L Potassium (3.4-5.1) mmol/L Chloride (98-107) mmol/L Carbon Dioxide (22-32) mmol/L BUN (9-20) mg/dL Creatinine (0.66-1.25) mg/dL Estimated GFR (>60) mL/min BUN/Creatinine Ratio (6-22) Glucose (70-100) mg/dL Calcium (8.4-10.2) mg/dL Total Bilirubin (0.2-1.3) mg/dL AST (17-59) IU/L ALT (<50) IU/L Alkaline Phosphatase (38-126) U/L Total Creatine Kinase (55-170) U/L CK-MB (CK-2) CK-MB (CK-2) Rel Index Troponin I (0.01-0.034) ng/mL Total Protein (6.3-8.2) g/dL Albumin (3.5-5.0) g/dL Globulin (1.7-4.1) g/dL Albumin/Globulin Ratio (1.0-2.8) Lipase (23-300) U/L COVID-19 PCR Negative (Negative) Imaging Data CT scan - chest: Radiologist's Impression: [address] [id number] Scan ReportSigned Patient: Abel Larios RMR#: [id number]: [id number]:[id number]/Sex: 50 / MDate of Service: 10/23/20Loc: EDAccession Number: [id number] Procedure: CT angio chest PE protocol Ordering Provider: Ashlie Pedroza D.O. PROCEDURE: CT ANGIO CHEST PE PROTOCOL INDICATIONS: left sided chest pain, back sx 1 month ago, + dimer TECHNIQUE: After the administration of intravenous contrast, 2 mm thick sections acquired from the pulmonary apices to the posterior costophrenic angles. 3-dimensional maximum intensity projection (MIP) coronal and sagittal reformats were then acquired through the thorax. For radiation dose reduction, the following was used: automated exposure control, adjustment of mA and/or kV according to patient size. COMPARISON: None. FINDINGS: Image quality: Phase of contrast enhancement is suboptimal, but the study is diagnostic. Transition from right-side to left side vascular distribution has occurred at time of scanning.. Pulmonary arteries: Pulmonary arteries are normal in size, and demonstrate definite bilateral intraluminal filling defects diagnostic of central pulmonary embolism, left greater than right. The left lower lobe bronchus contains a relatively high density clot, occlusive as it extends inferiorly into the basilar segmental pulmonary arteries. On the right there is a central nonocclusive pulmonary embolus at the far lateral margin of the right pulmonary artery, and several additional small emboli at the basilar segmental pulmonary arteries are suspected. Lungs and pleura: Lungs are clear. No pleural effusions or pneumothorax. Central and peripheral airways are patent. Mediastinum: Heart size is normal, without pericardial effusion. No mediastinal or hilar adenopathy. Thoracic aorta is normal in caliber and enhancement. Esophagus is normal in caliber, without hiatal hernia. Bones and chest wall: No suspicious bony lesions. Ribs and thoracic spine appear intact throughout. Thyroid gland appears normal where well seen . No axillary or supraclavicular adenopathy. Abdomen: Visualized upper abdominal solid organs appear normal in the early arterial phase of enhancement. IMPRESSION: Definite bilateral pulmonary emboli greater on the left than the right as discussed. The higher density of the pulmonary embolus well visualized on the left indicate subacute or acute chronicity. Lower density pulmonary emboli are chronic open (either embolism of a chronic thrombus from elsewhere, or chronicity of a thrombus within the pulmonary artery is indicated by the lower density in the 40-50 Hounsfield unit range). Findings immediately called to the emergency room physician caring for the patient. Dictated by: Cirilo Elizabeth M.D. on 10/23/2020 at 8:53 Approved by: Cirilo Elizabeth M.D. on 10/23/2020 at 9:02 ECG Data Attestation: I personally reviewed and interpreted this ECG as follows: Prior ECG tracings: not available for review Interpretation: Sinus rhythm rate of 74, TX interval 166, QRS of 92 and QTC of 441. No ST elevation or depression appreciated. MDM Narrative Medical decision making narrative: This is a 50-year-old male who comes in with left-sided reproducible chest pain for himself, I am unable to reproduce it that is localized to the left chest wall. Patient did have a recent lower lumbar surgery on September 27, suspect musculoskeletal but labs included for rule out. EKG shows no acute changes, chest x-ray shows no acute change. Patient's CBC shows a leukocytosis with a white count of 12.4 and a left shift at 81 %. Elevation in D-dimer 839 which cannot be aged out, patient has a sodium 136 with a glucose of 131 otherwise normal renal function and electrolytes with no major LFT abnormalities, troponin is negative. Patient CT scan of chest does show bilateral pulmonary emboli. Case was discussed with Dr. Sanabria and plan for outpatient oral anti coagulation based on no evidence of right heart strain, and patient does meet Hestia criteria for outpatient treatment. Patient did initially receive a bolus of heparin and discussed with pharmacy and can given eliquis should not increase bleeding risk. Patient updated and aware of plan, discussed strict return precautions. Discharge Plan Departure Patient Disposition: Home Clinical Impression: Pulmonary embolism, Chest pain Instructions: DI for Pulmonary Embolism Activity Restrictions/Additional Instructions: Follow-up with your physician in the next week for recheck. Take blood thinners 2 tablets every 12 hours x7 days then 1 tablet every 12 hours until cleared by your physician. You will likely be on this medication for a minimum of 6 months. You may take pain medication 1 tablet every 6 hours as needed, this medication can make you sleepy do not drive, perform hazardous activities or make any major decisions while taking it. It is also constipating and I would recommend taking a stool softener such as Colace once daily while taking any narcotic pain medication. Prescriptions at [facility] in [place] Return to the ER for fevers, increasing chest pain, shortness of breath, lightheadedness or passing out, swelling of your extremities, new weakness, numbness, new or increasing back pain or other new or concerning symptoms. Prescriptions: New Eliquis 5 mg tablet 10 mg PO BID Qty: 70 RF: 0 hydrocodone-acetaminophen [[place]] 5-325 mg tablet 1 tab PO Q6H PRN (Reason: pain) Qty: 14 RF: 0 No Action acetaminophen 325 mg Tablet 650 mg PO Q6HR PRN (Reason: Pain, Mild (1-3)) Qty: 60 RF: 0 docusate sodium [DOK] 100 mg Capsule 100 mg PO BID Qty: 30 RF: 0 hydroxyzine pamoate 25 mg Capsule 25 mg PO Q6-8H PRN (Reason: Nausea And Vomiting) Qty: 30 RF: 0 oxycodone 10 mg Tablet 10 mg PO Q4-6H PRN (Reason: Pain, Severe (7-10)) Qty: 50 RF: 0 Referrals: Casandra Corbin FNP-Megha [Primary Care Provider] - Felisa Pérez MD [Physician] -
--- NOTE | 2020-10-23 07:48 | DI.RAD.S_ITS ---
PROCEDURE: XR CHEST 1V INDICATIONS: Left-sided chest pain TECHNIQUE: One view of the chest was acquired. COMPARISON: None. FINDINGS: Surgical changes and devices: None. Lungs and pleura: Lungs are clear considering reduced inspiratory volume. No pleural effusions or pneumothorax. Mediastinum: Mediastinal contours appear normal. Heart size is normal. Bones and chest wall: No suspicious bony lesions. Overlying soft tissues appear unremarkable. IMPRESSION: Reduced inspiratory volume, no acute disease. Please also refer to subsequent chest CT scanning documenting left greater than right pulmonary emboli. Dictated by: Cirilo Elizabeth M.D. on 10/23/2020 at 9:03 Approved by: Cirilo Elizabeth M.D. on 10/23/2020 at 9:04
[2020-10-23 07:59] LABS: Add Manual Diff / Slide Review NO; Basophils Absolute Auto 300 /uL (0-100); Eosinophils Absolute Auto 100 /uL (0-450); Eosinophils Percent Auto 0.5 % (2-4); Hematocrit 42.7 % (41-53); Hemoglobin 14.8 g/dL (13.5-17.5); INR 1.1 (0.9-1.3); Lymphocytes Absolute Auto 800 /uL (1100-4500); Lymphocytes Percent Auto 6.5 % (25-40); Mean Corpuscular HGB Conc 34.8 % (30-36); Mean Corpuscular Volume 89.2 fL (80-100); Monocytes Absolute Auto 1200 /uL (0-900); Monocytes Percent Auto 9.3 % (3-14); Neutrophils Absolute Auto 10100 /uL (1500-7000); Neutrophils Percent Auto 81.7 % (50-75); Platelet Count 188 X10^3/uL (150-400); Prothrombin Time 13.1 SECONDS (10.1-12.7); Red Blood Cell Count 4.78 X10^6/uL (4.5-5.9); Red Cell Distribution Width 14.1 % (11.6-14.8); White Blood Cell Count 12.4 X10^3/uL (4.5-11.0)
[2020-10-23 08:02] LABS: D Dimer 839 ng/mL (<230); PTT Partial Thromboplastin Tim 29 SECONDS (26.4-36.2)
[2020-10-23] MEDS: SODIUM CHLORIDE 0.9% 1,000 ML 150 ML IV (08:02)
[2020-10-23 08:04] LABS: Alanine Aminotransferase 42 IU/L (<50); Albumin 4.6 g/dL (3.5-5.0); Albumin Globulin Ratio 1.3 (1.0-2.8); Alkaline Phosphatase 118 U/L (38-126); Aspartate Aminotransferase 28 IU/L (17-59); BUN Creatinine Ratio 15.1 (6-22); Blood Urea Nitrogen 14 mg/dL (9-20); Calcium 10.1 mg/dL (8.4-10.2); Carbon Dioxide 29 mmol/L (22-32); Chloride 103 mmol/L (98-107); Creatine Kinase 55 U/L (55-170); Estimated Glomerular Filt Rate > 60.0 mL/min (>60); Globulin 3.6 g/dL (1.7-4.1); Glucose 131 mg/dL (70-100); HEMOLYSIS < 15 (0-50); Lipase 97 U/L (23-300); Sodium 136 mmol/L (137-145); Total Protein 8.2 g/dL (6.3-8.2)
[2020-10-23] MEDS: KETOROLAC 60 MG/2 ML VIAL 15 MG IV (08:04)
--- NOTE | 2020-10-23 08:10 | DI.CT.S_ITS ---
PROCEDURE: CT ANGIO CHEST PE PROTOCOL INDICATIONS: left sided chest pain, back sx 1 month ago, + dimer TECHNIQUE: After the administration of intravenous contrast, 2 mm thick sections acquired from the pulmonary apices to the posterior costophrenic angles. 3-dimensional maximum intensity projection (MIP) coronal and sagittal reformats were then acquired through the thorax. For radiation dose reduction, the following was used: automated exposure control, adjustment of mA and/or kV according to patient size. COMPARISON: None. FINDINGS: Image quality: Phase of contrast enhancement is suboptimal, but the study is diagnostic. Transition from right-side to left side vascular distribution has occurred at time of scanning.. Pulmonary arteries: Pulmonary arteries are normal in size, and demonstrate definite bilateral intraluminal filling defects diagnostic of central pulmonary embolism, left greater than right. The left lower lobe bronchus contains a relatively high density clot, occlusive as it extends inferiorly into the basilar segmental pulmonary arteries. On the right there is a central nonocclusive pulmonary embolus at the far lateral margin of the right pulmonary artery, and several additional small emboli at the basilar segmental pulmonary arteries are suspected. Lungs and pleura: Lungs are clear. No pleural effusions or pneumothorax. Central and peripheral airways are patent. Mediastinum: Heart size is normal, without pericardial effusion. No mediastinal or hilar adenopathy. Thoracic aorta is normal in caliber and enhancement. Esophagus is normal in caliber, without hiatal hernia. Bones and chest wall: No suspicious bony lesions. Ribs and thoracic spine appear intact throughout. Thyroid gland appears normal where well seen . No axillary or supraclavicular adenopathy. Abdomen: Visualized upper abdominal solid organs appear normal in the early arterial phase of enhancement. IMPRESSION: Definite bilateral pulmonary emboli greater on the left than the right as discussed. The higher density of the pulmonary embolus well visualized on the left indicate subacute or acute chronicity. Lower density pulmonary emboli are chronic open (either embolism of a chronic thrombus from elsewhere, or chronicity of a thrombus within the pulmonary artery is indicated by the lower density in the 40-50 Hounsfield unit range). Findings immediately called to the emergency room physician caring for the patient. Dictated by: Cirilo Elizabeth M.D. on 10/23/2020 at 8:53 Approved by: Cirilo Elizabeth M.D. on 10/23/2020 at 9:02
[2020-10-23 08:16] LABS: Troponin I < 0.012 ng/mL (0.01-0.034)
[2020-10-23] MEDS: HEPARIN 5,000 UNIT/ML VIAL 5000 UNIT IV (09:07)
[2020-10-23] MEDS: HEPARIN DRIP 25,000 UNIT/500 ML IV.SOLN 45.885 UNIT IV (09:08)
[2020-10-23 09:30] LABS: COVID19 -Nasal RAPID Negative (Negative)
[2020-10-23] MEDS: APIXABAN 5 MG TABLET 10 MG PO (09:59)
== END 2020-10-23 10:07 | disposition home or self-care (01) ==
PROVIDERS: Emergency Provider Emergency Medicine; PCP Registered Nurse
DX: I26.99 Other pulmonary embolism without acute cor pulmonale (principal)
CPT/HCPCS: 36415; 71045; 71275; 80053; 82550; 83690; 84484; 85025; 85379; 85610; 85730; 87635; 93005; 96361; 96365; 96375; 99284; J1644; J1885